=== PATIENT | female | born 1935 | race Caucasian/White ===

== ENCOUNTER 2017-04-08 07:28 | Day surgery (SDC) | payer MEDICARE ==
[~2017-04-08 07:28] MED LIST: ADLT ASA LOW81 MG PO; ALLEGRA60 MG PO; AMOXICILLIN250 M1 PO; ASPIRIN EC81 MG PO; BABY ASPIRIN81 MG PO; BENEFIB10; BENEFIB10 PO; BYSTOLIC10 MG PO; BYSTOLIC5 MG PO; CALCIUM CARBONATE; CALCIUM PLUS D PO; CARAFATE1 GM PO; CHOLECALCIFEROL; CHOLEST CARE500 MG PO; CLOBETASOL E0.05 % TOP; CLOBETASOL0.051 EX; CLOBETASOL0.053 EX; COZAAR100 MG PO; COZAAR50 MG PO; DIGOXIN0.125 MG PO; DOXYCYCL HYC100 MG PO; EQ ACETAMINOPH PO; ESTRACE VAG0.1 MG/GM TOP; FERROUS SULF325 M2 PO; FLEXERIL5 M1 PO; FLUARIX QUADRIV1 INJ IM; FLULAVAL IM; FOLIC ACID400 MC1 OR; GABAPENTIN100 MG PO; IBUPROFEN200 M2 OR; IRON25 MG OR; LASIX 20 MG TAB20 MG PO; LEVAQUIN750 MG PO; LORTAB 7.5 PO; LOSARTAN POT50 MG PO; MECLIZINE25 MG PO; METAMUCIL0.52 GM OR; MOTRIN200 MG PO; MULTI 501 PO; MULTI VIT PO; NITROSTAT0.4 MG SL; OMEPRAZOLE20 MG PO; OSCAL 500/1 TAB PO; PERCOCET 5/325M1 TAB PO; POT CHLORIDE10 ME1 PO; PREMARIN0.625 MG OR; PROAIR HFA IN; STOOL SOFTNR PO; SYMBICORT1 AE1 IN; TOPROL XL25 M1 PO; VITAMIN B-121000 MC1 SL; WARFARIN1 MG PO; WARFARIN2 MG PO; ZOFRAN ODT4 MG PO
[2017-04-08] MEDS ORDERED: BENEFIB10 PO ×2 (08:03→08:04)
[2017-04-08 12:00] VITALS: BP 122/52
[2017-04-12] MEDS ORDERED: BENEFIB10 PO (22:33)
[2017-04-12] MEDS ORDERED: AMLODIPINE BESYL5 MG PO (22:34)
[2017-04-14] MEDS ORDERED: METRONIDAZOL500 MG PO (12:35)
[2017-04-14] MEDS ORDERED: METOCLOPRAMIDE O5 MG PO (12:37)
== END 2017-04-08 12:19 | disposition home or self-care (01) ==
LOC: ENDO 07:28
PROVIDERS: ATTEND Surgery
PROC: 0DJD8ZZ Inspection of Lower Intestinal Tract, Via Natural or Artificial Opening Endoscopic (ICD-10-PCS; principal; 2017-04-08)
DX: K62.5 Hemorrhage of anus and rectum (principal); K57.30 Diverticulosis of large intestine without perforation or abscess without bleeding; Q43.9 Congenital malformation of intestine, unspecified; I25.10 Atherosclerotic heart disease of native coronary artery without angina pectoris; Z95.1 Presence of aortocoronary bypass graft; K64.4 Residual hemorrhoidal skin tags

== ENCOUNTER 2018-01-06 05:55 | Day surgery (SDC) | payer MEDICARE ==
[~2018-01-06] VITALS: Ht 165.1 cm; Wt 50.3 kg
[~2018-01-06 05:55] MED LIST changes: +ACETAMINOPHEN500 M2 PO; +AMLODIPINE BESYL5 MG PO; +FUROSEMIDE20 MG PO; +METOCLOPRAMIDE O5 MG PO; +METRONIDAZOL500 MG PO; +NORVASC5 M1 PO; +OMEPRAZOLE PO
[2018-01-06 07:55] VITALS: BP 111/59
== END 2018-01-06 08:06 | disposition home or self-care (01) ==
LOC: ORM 05:55
PROVIDERS: ATTEND Surgery
PROC: 0DB68ZX Excision of Stomach, Via Natural or Artificial Opening Endoscopic, Diagnostic (ICD-10-PCS; principal; 2018-01-06)
DX: K29.50 Unspecified chronic gastritis without bleeding (principal); I10 Essential (primary) hypertension; E78.5 Hyperlipidemia, unspecified; I25.10 Atherosclerotic heart disease of native coronary artery without angina pectoris; Z95.1 Presence of aortocoronary bypass graft

== ENCOUNTER → 2018-11-15 | Outpatient (REF) | payer MEDICARE ==
[~2018-11-15] MED LIST changes: +CALCIUM + D600 MG PO; +LOSARTAN POTASS50 MG PO; +MONTELUKAST SOD10 MG PO; +PANTOPRAZOLE SO40 MG PO
[2018-11-15 08:15] LABS: HEMOGLOBIN 11.4 g/dl (12.0-16.0); IMMATURE GRANULOCYTES 0.5 % (0.0-5.0); MEAN CELL VOLUME 91.4 fL CALC (80.0-100.0); MEAN CORPUSCULAR HGB 28.1 pG CALC (26.0-32.0); MEAN CORPUSCULAR HGB CONC 30.8 g/L CALC (32.0-36.0); NEUT# 2.42 thou/uL (2.00-7.15); RED BLOOD COUNT 4.05 mill/uL (4.20-5.60); RED CELL DISTRI WIDTH 18.1 % (11.5-15.5)
[2018-11-15 08:34] LABS: INTERNATIONAL NORMALIZED RATIO 2.9 RATIO (0.7-1.3); PROTHROMBIN TIME 29.8 SECONDS (9.0-12.5)
[2018-11-15 08:41] LABS: ALBUMIN 4.3 g/dL (3.2-5.0); BILIRUBIN, TOTAL 1.3 mg/dL (0.0-1.4); CHOLESTEROL HDL RATIO 2.3 (<4.4 (CALC)); CREATININE 1.1 mg/dL (0.5-1.0); POTASSIUM 4.3 mmol/l (3.5-5.1); TOTAL PROTEIN 8.6 g/dL (6.3-8.2)
[2018-11-15 09:08] LABS: TSH, 3RD GENERATION 3.32 uIU/mL (0.47 - 4.68)
== END | disposition home or self-care (01) ==
LOC: LAB 07:48
PROVIDERS: ATTEND Internal Medicine
DX: Z00.00 Encounter for general adult medical examination without abnormal findings (principal); R53.83 Other fatigue; Z79.899 Other long term (current) drug therapy; Z79.01 Long term (current) use of anticoagulants

== ENCOUNTER 2018-12-05 20:40 | Inpatient (IN) | payer MEDICARE ==
[~2018-12-05] VITALS: Ht 165.1 cm; Wt 47.0 kg
[~2018-12-05 20:40] MED LIST changes: -CALCIUM + D600 MG PO; -LOSARTAN POTASS50 MG PO; -MONTELUKAST SOD10 MG PO; -PANTOPRAZOLE SO40 MG PO
--- NOTE | 2018-12-05 20:53 | NUR ---
PT WENT TO THE CLUBHOUSE AT [facility] TO GET A NEW BOOK AND IT WAS CLOSED. WHEN SHE WENT TO GET BACK INTO HER CAR SHE PASSED OUT.
--- NOTE | 2018-12-05 21:15 | NUR ---
PATIENT MEDICATED ORDERED AND ORTHOSTATIC VS OBTAINED. PATIENT FELT NAUSEA WHEN SITTING, OTHERWISE TOLERATED WELL.
[2018-12-05 21:19] LABS: HEMATOCRIT 31.4 % (37.0-47.0); HEMOGLOBIN 9.6 g/dl (12.0-16.0); IMMATURE GRANULOCYTES 0.5 % (0.0-5.0); MEAN CELL VOLUME 90.5 fL CALC (80.0-100.0); MEAN CORPUSCULAR HGB 27.7 pG CALC (26.0-32.0); MEAN CORPUSCULAR HGB CONC 30.6 g/L CALC (32.0-36.0); NEUT# 2.16 thou/uL (2.00-7.15); RED BLOOD COUNT 3.47 mill/uL (4.20-5.60); RED CELL DISTRI WIDTH 17.9 % (11.5-15.5)
[2018-12-05 21:20] VITALS: BP 120/60
[2018-12-05 21:21] VITALS: BP 106/54; BP 118/58
[2018-12-05 21:30] LABS: INTERNATIONAL NORMALIZED RATIO 2.9 RATIO (0.7-1.3); PROTHROMBIN TIME 30.3 SECONDS (9.0-12.5)
[2018-12-05 21:41] LABS: ALBUMIN 3.9 g/dL (3.2-5.0); ALKALINE PHOSPHATASE 122 u/l (38-126); ANION GAP 18 (6-22 (CALC)); BILIRUBIN, TOTAL 0.9 mg/dL (0.0-1.4); BUN 19 mg/dL (8-23); BUN/CREATININE RATIO 17 (12-20 (CALC)); CARBON DIOXIDE 22 mmol/l (22-30); CHLORIDE 97 mmol/l (95-108); CREATININE 1.2 mg/dL (0.5-1.0); GFR 43 ML/MIN (>=60 (CALC)); GFR FOR AFR.AMER. 52 ML/MIN (>=60 (CALC)); POTASSIUM 4.3 mmol/l (3.5-5.1); SGOT/AST 41 u/l (9-36); SODIUM 133 mmol/l (137-146); TOTAL PROTEIN 8.1 g/dL (6.3-8.2)
[2018-12-05 21:53] LABS: MYOGLOBIN 199 ng/mL (0 - 62)
--- NOTE | 2018-12-05 22:15 | NUR ---
NO FURTHER NAUSEA SIPS OF GINGERALE GIVEN.
--- NOTE | 2018-12-05 23:09 | NUR ---
REPORT GIVEN TO NELIA LORD.
--- NOTE | 2018-12-05 23:20 | NUR ---
NO FURTHER NAUSEA- NO DIZZINESS AT THIS TIME. Admission Note Report Given to: NELIA LORD Transported by: Wheelchair X Stretcher Transported with: X Nurse Transporter X Patent IV O2 X Diaper Machine Tender
[2018-12-05 23:25] VITALS: BP 79/49
[2018-12-05 23:55] VITALS: BP 84/62
[2018-12-06] VITALS (9 sets, daily range): BP systolic 90–134; BP diastolic 56–78
[2018-12-06 02:37] LABS: URINE BILIRUBIN - DIPSTICK NEGATIVE (NEGATIVE); URINE BLOOD DIPSTICK TRACE-INTACT (NEGATIVE); URINE COLOR YELLOW; URINE GLUCOSE - DIPSTICK NEGATIVE (NEGATIVE); URINE KETONE NEGATIVE (NEGATIVE); URINE LEUK ESTERASE TRACE (NEGATIVE); URINE NITRITE - DIPSTICK NEGATIVE (Negative); URINE PROTEIN - DIPSTICK 30 mg/dL (NEG-TRACE); URINE SPECIFIC GRAVITY 1.015; URINE UROBILINOGEN - DIPSTICK 0.2 E.U./dL (0.2)
[2018-12-06 02:45] LABS: URINE BACTERIA FEW hpf; URINE MUCUS FEW hpf (NONE-FEW); URINE SQUAMOUS EPITHELIAL CELL MODERATE EPI/hpf (0-FEW)
--- NOTE | 2018-12-06 07:44 | NUR ---
SHIFT CHANGE REPORT, PT AWAKE ALERT AND ORIENTED SITTING UP IN BED, C/O PAIN TO LEFT ANKLE AND TALKS ABOUT EVENTS LEADING UP TO HOSPITALIZATION, TELE MONITOR IN PLACE, WILL CONTINUE TO MONITOR, CALL LU IN REACH.
--- NOTE | 2018-12-06 12:00 | NUR ---
DR SALDIVAR ROUNDED AND DISCUSSED PLAN OF CARE WITH PT AND SPOUSE, STATED BOTH UNDERSTANDING.
--- NOTE | 2018-12-06 16:00 | NUR ---
RESTING IN BED, ALL NEEDS ADDRESSED, CALL LU IN REACH.
[2018-12-06] MEDS ORDERED: LOSARTAN POTASS50 MG PO (16:11)
[2018-12-06] MEDS ORDERED: WARFARIN2 MG PO ×3 (16:13→16:20)
[2018-12-06] MEDS ORDERED: CALCIUM + D600 MG PO (16:21)
[2018-12-06] MEDS ORDERED: MULTI VIT PO (16:23)
[2018-12-06] MEDS ORDERED: TOPROL XL25 M1 PO (16:23)
[2018-12-06] MEDS ORDERED: FUROSEMIDE20 MG PO (16:25)
[2018-12-06] MEDS ORDERED: MONTELUKAST SOD10 MG PO (16:29)
[2018-12-06] MEDS ORDERED: PANTOPRAZOLE SO40 MG PO (16:30)
--- NOTE | 2018-12-06 19:00 | NUR ---
RECEIVED REPORT FROM NURSE VOGT PT IS RESTING IN BED, CURRENTLY WATCHING TV CALL LIGHT WITHIN REACH.
--- NOTE | 2018-12-06 20:00 | NUR ---
RECEIVED PT RESTING IN BED, DENIES PAIN OR DISCOMFORT WITH SALINE LOCK ON LAC G20 PATENT FLUSHES WELL WITH TELE READING SR WITH AVB 69. REINFORCED ON CALLING FOR ASSISTANCE DURING TRANSFER R/T DX SYCOPE.CALL LIGHT WITHIN REACH.
[2018-12-07] VITALS (10 sets, daily range): BP systolic 96–123; BP diastolic 61–74
--- NOTE | 2018-12-07 | NUR ---
PATIENT RESTING IN BED, EYES CLOSED NO DISCOMFORTS AT THIS TIME, EVEN UNLABORED BREATHING CALL LIGHT WITHIN REACH.
--- NOTE | 2018-12-07 04:00 | NUR ---
PATIENT RESTING IN BED, DENIES PAIN OR DIZZINESS AT THIS TIME, ON TELE READING SR 73, ORTHOSTATIC BP FOLLOWS: SUPINE BP109/67 P 74, SITTING 118/74 P87,, STANDING 118/69 P 86, REFUSED TO GET IV CHANGE AT THIS TIME.CALL LIGHT WITHIN REACH.
[2018-12-07 05:41] LABS: ALBUMIN 3.2 g/dL (3.2-5.0); ALKALINE PHOSPHATASE 107 u/l (38-126); AMYLASE 39 u/l (30-110); ANION GAP 14 (6-22 (CALC)); BILIRUBIN, TOTAL 1.1 mg/dL (0.0-1.4); BUN 21 mg/dL (8-23); BUN/CREATININE RATIO 21 (12-20 (CALC)); CARBON DIOXIDE 26 mmol/l (22-30); CHLORIDE 100 mmol/l (95-108); GFR 53 ML/MIN (>=60 (CALC)); GFR FOR AFR.AMER. > 60 ML/MIN (>=60 (CALC)); LIPASE 233 u/l (23-300); MAGNESIUM 1.7 mg/dL (1.6-2.3); POTASSIUM 4.4 mmol/l (3.5-5.1); SGOT/AST 33 u/l (9-36); SODIUM 135 mmol/l (137-146); TOTAL PROTEIN 6.9 g/dL (6.3-8.2)
[2018-12-07 05:43] LABS: HEMATOCRIT 29.7 % (37.0-47.0); HEMOGLOBIN 9.1 g/dl (12.0-16.0); IMMATURE GRANULOCYTES 0.2 % (0.0-5.0); MEAN CELL VOLUME 90.8 fL CALC (80.0-100.0); MEAN CORPUSCULAR HGB 27.8 pG CALC (26.0-32.0); MEAN CORPUSCULAR HGB CONC 30.6 g/L CALC (32.0-36.0); NEUT# 2.4 thou/uL (2.00-7.15); RED BLOOD COUNT 3.27 mill/uL (4.20-5.60); RED CELL DISTRI WIDTH 17.9 % (11.5-15.5)
--- NOTE | 2018-12-07 08:01 | NUR ---
PT IS SITTING IN THE SIDE OF THE BED. ASSESSMENT DONE. PT IS A&O X3. TELE IN PLACE. PT DENIES ANY NEEDS AT THIS TIME. SAFETY PRECAUTIONS REINFORCED AND CALL LIGHT IN REACH.
[2018-12-07 09:08] LABS: INTERNATIONAL NORMALIZED RATIO 2.8 RATIO (0.7-1.3); PROTHROMBIN TIME 28.7 SECONDS (9.0-12.5)
--- NOTE | 2018-12-07 11:22 | NUR ---
DR. SALDIVAR AT BEDSIDE TO ASSESS PT. PT STATED SHE HAS BACK PAIN. CALL LIGHT IN REACH.
--- NOTE | 2018-12-07 13:03 | NUR ---
HEATING PACK PLACE IN PT BACK AND MEDICATED PT WITH ULTRAM FOR PAIN IN BACK 05/17. PT STATED SHE HAS SPASMS IN BACK THAT COME AND GO. CALL LIGHT IN REACH. IN ROOM. NOTIFIED DR. SALDIVAR. NO ORDERS RECEIVED AT THIS TIME.
--- NOTE | 2018-12-07 16:30 | NUR ---
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 PT DENIES ANY NEEDS AT THIS TIME.
--- NOTE | 2018-12-07 19:00 | NUR ---
RECEIVED REPORT FROM NURSE URENA, PT IN BED, NO DISCOMFORTS NOTED AT THIS TIME, CALL LIGHT IN REACH.
--- NOTE | 2018-12-07 20:00 | NUR ---
PATIENT RESTING IN BED WATCHING TV, WITH EVEN UNLABORED BREATHING WITH SALINE LOCK ON RT FOREARM, PATENT AND FLUSHES WELL, ON TELE READING SR 71, DENIES PAIN OR DISCOMFORT AT THIS TIME, CALL LIGHT IN REACH.
[2018-12-08] VITALS (10 sets, daily range): BP systolic 103–128; BP diastolic 50–74
--- NOTE | 2018-12-08 01:20 | NUR ---
PATIENT APPEARS TO BE SLEEPING, WITH EYES CLOSED, NO DISCOMFORTS NOTED CALL LIGHT AT REACH.
--- NOTE | 2018-12-08 03:40 | NUR ---
PATIENT SLEEPING IN BED EYES CLOSED NO DISCOMFORTS NOTED AT THIS TIME.
[2018-12-08 04:58] LABS: HEMATOCRIT 31.1 % (37.0-47.0); HEMOGLOBIN 9.4 g/dl (12.0-16.0); IMMATURE GRANULOCYTES 0.2 % (0.0-5.0); MEAN CELL VOLUME 91.2 fL CALC (80.0-100.0); MEAN CORPUSCULAR HGB 27.6 pG CALC (26.0-32.0); MEAN CORPUSCULAR HGB CONC 30.2 g/L CALC (32.0-36.0); NEUT# 3.27 thou/uL (2.00-7.15); RED BLOOD COUNT 3.41 mill/uL (4.20-5.60); RED CELL DISTRI WIDTH 17.9 % (11.5-15.5)
[2018-12-08 05:15] LABS: INTERNATIONAL NORMALIZED RATIO 2.8 RATIO (0.7-1.3)
[2018-12-08 05:21] LABS: ALBUMIN 3.5 g/dL (3.2-5.0); ALKALINE PHOSPHATASE 110 u/l (38-126); ANION GAP 14 (6-22 (CALC)); BILIRUBIN, TOTAL 0.9 mg/dL (0.0-1.4); BUN 21 mg/dL (8-23); BUN/CREATININE RATIO 24 (12-20 (CALC)); CARBON DIOXIDE 26 mmol/l (22-30); CHLORIDE 100 mmol/l (95-108); CREATININE 0.9 mg/dL (0.5-1.0); GFR 60 ML/MIN (>=60 (CALC)); GFR FOR AFR.AMER. > 60 ML/MIN (>=60 (CALC)); MAGNESIUM 1.7 mg/dL (1.6-2.3); POTASSIUM 4.3 mmol/l (3.5-5.1); SGOT/AST 38 u/l (9-36); SODIUM 136 mmol/l (137-146); TOTAL PROTEIN 7.4 g/dL (6.3-8.2)
--- NOTE | 2018-12-08 06:50 | NUR ---
PATIENT STATED THAT SHE'S A LITTLE SHORT OF BREATH 02 SAT AT RA WAS 89-90%, PLACE ON 2 LPM VIA NC, POX @92 %, CURRENTLY RESTING IN BED, CALL LIGHT WITHIN REACH.
--- NOTE | 2018-12-08 07:38 | NUR ---
PT STATED SHE WAS FEELING NAUSEOUS. ASSESSMENT DONE. PT IS A&O X3. PT DENIES ANY PAIN AT THIS TIME. TELE IN PLACE. #22 RFA THAT APPEARS HEALTHLY. CALLED DR. SALDIVAR AND LEFT A MESSAGE TO CALL BACK.
--- NOTE | 2018-12-08 11:04 | NUR ---
DR. SALDIVAR AT BEDSIDE TO ASSESS PT AND ORDERS RECEIVED. IN ROOM. CALL LIGHT IN REACH.
--- NOTE | 2018-12-08 13:49 | NUR ---
EXPLAIN TO PT S/S OF REACTION. FRESH FROZEN PLASMA STARTED PER ORDER. PT VERBALIZED UNDERSTANDING. IN ROOM.
--- NOTE | 2018-12-08 14:47 | NUR ---
ATTEMPTING P.T. EVALUATION, WHICH IS DEFERRED THIS AFTERNOON DUE TO RECEIVING BLOOD AT PRESENT. WILL F/U TOMORROW.
--- NOTE | 2018-12-08 16:16 | NUR ---
PLASMA DONE. PT TOLERATED WELL. PT STATED PAIN IN LEFT ANKLE 09/16 BUT DENIES ANY PAIN MEDICATION AT THIS TIME. IN ROOM. CALL LIGHT IN REACH.
--- NOTE | 2018-12-08 17:59 | NUR ---
PER LAB CALLED STATED THAT PT DID NOT NEED APHERESIS FROZEN PLASMA AT THIS TIME. CALLED DR. SALDIVAR STATED THAT PT DID RECEIVED THE FRESH FROZEN PLASMA. ASKED HIM IF HE WANTED ME TO GAVE THE APHERESIS FROZEN PLASMA. STATED NO AND TO DC ORDER.
--- NOTE | 2018-12-08 21:31 | NUR ---
PATIENT RESTING IN BED-AWAKE ALERT AND ORIENTEDX3. PATIENT WITH TELE MONITOR IN PLACE. NO O2 AT THIS TIME. SALINE LOCK TO RIGHT FOREARM INTACT AND APPEARS HEALTHY AT THIS TIME. PATIENT FOR POSS THORACENTESIS DEPENDING OF LABS IN THE MORNING. PATIENT IS STILL CONSTIPATED EVEN WITH TAKING LACTULOSE ORDERED. ABD IS SOFTLY DISTENDED WITH BS+. SAFETY PRECAUTIONS REINFORCED. CALL LIGHT IN REACH. WILL CONT TO MONITOR.
[2018-12-09] VITALS (9 sets, daily range): BP systolic 108–146; BP diastolic 65–77
--- NOTE | 2018-12-09 01:51 | NUR ---
PATIENT ASSISTED UP TO BSC FOR LARGE FORMED BROWN BM. ASSISTED BACK TO BED. TELE MONITOR IN PLACE. SALINE LOCK TO RIGHT FOREARM INTACT. SAFETY PRECAUTIONS REINFORCED. CALL LIGHT IN REACH. WILL CONT TO MONITOR.
--- NOTE | 2018-12-09 03:25 | NUR ---
PATIENT CALLED AGAIN AND ASSISTED TO BSC FOR WATERY BROWN STOOL. ASSISTED BACK TO BED. TELE [id number] IN PLACE. SAFETY PRECAUTIONS REINFORCED. CALL LIGHT IN REACH. WILL CONT TO MONITOR.
--- NOTE | 2018-12-09 05:19 | NUR ---
PATIENT MEDICATED FOR LEFT RIB PAIN WITH ULTRAM PER PATIENT REQUEST. ORTHOSTATIC VS DONE AND RECORDED. SAFETY PRECAUTIONS REINFORCED. CALL LIGHT IN REACH. WILL CONT TO MONITOR.
[2018-12-09 05:52] LABS: INTERNATIONAL NORMALIZED RATIO 2.2 RATIO (0.7-1.3); PROTHROMBIN TIME 22.7 SECONDS (9.0-12.5)
--- NOTE | 2018-12-09 08:40 | NUR ---
ASSESSMENT DONE. PT IS SITTING IN RECLINER. PT IS A&O X3. 02 AT 2L VIA NC. PT STATED PAIN IN LEFT ANKLE 2/ BUT DENIES PAIN MEDICATION AT THIS TIME. TELE IN PLACE. PT DENIES ANY NEEDS AT THIS TIME. IN ROOM.
--- NOTE | 2018-12-09 11:05 | NUR ---
MEDICATED PT WITH ULTRAM FOR PAIN IN BACK 04/16 SEE EMAR. PT IN ROOM. PT DENIES ANY OTHER NEEDS AT THIS TIME. PT WAITING FOR MD POC FOR TODAY.
[2018-12-09] MEDS ORDERED: TRAMADOL HCL50 MG PO (14:08)
[2018-12-09] MEDS ORDERED: MIRTAZAPINE15 MG PO (14:08)
--- NOTE | 2018-12-09 16:05 | NUR ---
Discharge instructions given. Patient verbalizes understanding of same. Discharged in stable condition via Wheelchair to Home with spouse. All belongings sent with pt.
== END 2018-12-09 16:04 | disposition home or self-care (01) | DRG 312 ==
LOC: ED 20:40 → ED-I 22:25 → ED 22:42 → MS2 22:43
PROVIDERS: Family Medicine; Nurse Practitioner Adult Health; ADMIT Internal Medicine; ATTEND Internal Medicine Nephrology
PROC: 30233K1 Transfusion of Nonautologous Frozen Plasma into Peripheral Vein, Percutaneous Approach (ICD-10-PCS; principal; 2018-12-08)
DX: I95.1 Orthostatic hypotension (principal); I48.1 Persistent atrial fibrillation; J90 Pleural effusion, not elsewhere classified; I12.9 Hypertensive chronic kidney disease with stage 1 through stage 4 chronic kidney disease, or unspecified chronic kidney disease; N18.3 Chronic kidney disease, stage 3 (moderate); M19.90 Unspecified osteoarthritis, unspecified site; K21.9 Gastro-esophageal reflux disease without esophagitis; E55.9 Vitamin D deficiency, unspecified; Z87.891 Personal history of nicotine dependence; Z79.01 Long term (current) use of anticoagulants; Z95.3 Presence of xenogenic heart valve
CPT/HCPCS: G0378

== ENCOUNTER 2019-07-12 15:18 | Emergency (ER) | payer MEDICARE ==
[~2019-07-12] VITALS: Ht 165.1 cm; Wt 40.0 kg
[~2019-07-12 15:18] MED LIST changes: +CALCIUM + D600 MG PO; +LOSARTAN POTASS50 MG PO; +MIRTAZAPINE15 MG PO; +MONTELUKAST SOD10 MG PO; +PANTOPRAZOLE SO40 MG PO; +TRAMADOL HCL50 MG PO
[2019-07-12] MEDS ORDERED: FUROSEMIDE20 MG PO (15:42)
[2019-07-12 15:52] LABS: HEMATOCRIT 43.2 % (37.0-47.0); HEMOGLOBIN 12.8 g/dl (12.0-16.0); IMMATURE GRANULOCYTES 0.2 % (0.0-5.0); MEAN CELL VOLUME 88.9 fL CALC (80.0-100.0); MEAN CORPUSCULAR HGB 26.3 pG CALC (26.0-32.0); MEAN CORPUSCULAR HGB CONC 29.6 g/L CALC (32.0-36.0); NEUT# 2.83 thou/uL (2.00-7.15); RED BLOOD COUNT 4.86 mill/uL (4.20-5.60); RED CELL DISTRI WIDTH 19.7 % (11.5-15.5)
[2019-07-12 16:19] LABS: ANION GAP 13 (6-22 (CALC)); BUN 21 mg/dL (8-23); BUN/CREATININE RATIO 25 (12-20 (CALC)); CARBON DIOXIDE 35 mmol/l (22-30); CHLORIDE 89 mmol/l (95-108); CREATININE 0.8 mg/dL (0.5-1.0); GFR > 60 ML/MIN (>=60 (CALC)); GFR FOR AFR.AMER. > 60 ML/MIN (>=60 (CALC)); POTASSIUM 3.8 mmol/l (3.5-5.1); SODIUM 133 mmol/l (137-146)
[2019-07-12 19:32] LABS: HEMOGLOBIN 11.6 g/dl (12.0-16.0); IMMATURE GRANULOCYTES 0.4 % (0.0-5.0); MEAN CELL VOLUME 90.9 fL CALC (80.0-100.0); MEAN CORPUSCULAR HGB 26.4 pG CALC (26.0-32.0); NEUT# 3.3 thou/uL (2.00-7.15); RED BLOOD COUNT 4.4 mill/uL (4.20-5.60); RED CELL DISTRI WIDTH 19.6 % (11.5-15.5)
[2019-07-12 19:42] LABS: ALKALINE PHOSPHATASE 82 u/l (38-126); ANION GAP 9 (6-22 (CALC)); BILIRUBIN, TOTAL 1.1 mg/dL (0.0-1.4); BUN 19 mg/dL (8-23); BUN/CREATININE RATIO 27 (12-20 (CALC)); CARBON DIOXIDE 32 mmol/l (22-30); CHLORIDE 97 mmol/l (95-108); CREATININE 0.7 mg/dL (0.5-1.0); GFR > 60 ML/MIN (>=60 (CALC)); GFR FOR AFR.AMER. > 60 ML/MIN (>=60 (CALC)); POTASSIUM 3.5 mmol/l (3.5-5.1); SODIUM 135 mmol/l (137-146)
[2019-07-12 19:57] LABS: ALBUMIN 3.1 g/dL (3.2-5.0); SGOT/AST 66 u/l (9-36); TOTAL PROTEIN 6.6 g/dL (6.3-8.2)
[2019-07-12 20:22] VITALS: BP 117/64
== END 2019-07-12 20:22 | disposition short-term general hospital (02) ==
LOC: ED 15:18
PROVIDERS: Family Medicine
PROC: 05HM33Z Insertion of Infusion Device into Right Internal Jugular Vein, Percutaneous Approach (ICD-10-PCS; principal; 2019-07-12)
DX: J90 Pleural effusion, not elsewhere classified (principal); J18.1 Lobar pneumonia, unspecified organism; R06.02 Shortness of breath; I10 Essential (primary) hypertension; I48.91 Unspecified atrial fibrillation; Z79.01 Long term (current) use of anticoagulants; R55 Syncope and collapse
CPT/HCPCS: Q9967